=== PATIENT | male | born 1985 | race African-American/Black ===

== ENCOUNTER 2023-05-08 12:03 | Emergency (ER) | payer OTHER ==
[~2023-05-08] VITALS: Ht 165.1 cm; Wt 74.8 kg
[2023-05-08] MEDS ORDERED: BUSP15TA3 PO (12:13)
[2023-05-08] MEDS ORDERED: QUET100T32 PO (12:13)
[2023-05-08] MEDS ORDERED: ESCI20TA44 PO (12:13)
[2023-05-08] MEDS ORDERED: TRAZ-252 PO (12:21)
[2023-05-08 12:27] LABS: BASOPHILS % (AUTO) 0.7 % (0.0-2.0); EOSINOPHILS # (AUTO) 0.1 K/uL (0.0-0.7); EOSINOPHILS % (AUTO) 0.9 % (0.0-7.0); HEMATOCRIT 41.7 % (36.7-47.1); LYMPHOCYTES # (AUTO) 1.8 K/uL (0.8-4.8); MEAN CORPUSCULAR HEMOGLOBIN 31.4 uug (23.8-33.4); MEAN CORPUSCULAR HGB CONC 34 g/dL (32.5-36.3); MEAN CORPUSCULAR VOLUME 93.7 fL (73.0-96.2); MONOCYTES # (AUTO) 0.7 K/uL (0.1-1.30); MONOCYTES % (AUTO) 10.9 % (0.0-11.0); NEUTROPHILS # (AUTO) 3.6 K/uL (1.8-8.9); NEUTROPHILS % (AUTO) 58.5 % (38.5-71.5); PLATELET COUNT (AUTO) 290 K/uL (152-348); RED BLOOD CELL COUNT(AUTO) 4.46 MIL/uL (4.06-5.63); RED CELL DISTRIBUTION WIDTH 13.5 % (12.1-16.2); WHITE BLOOD COUNT (AUTO) 6.1 K/uL (3.6-10.2)
[2023-05-08 12:30] LABS: DIFFERENTIAL COMMENT 1
[2023-05-08 12:43] LABS: ALANINE AMINOTRANSFERASE 26 U/L (16-63); ALBUMIN 3.3 g/dL (3.4-5.0); ALKALINE PHOSPHATASE 84 U/L (50-136); ASPARTATE AMINOTRANSFERASE 19 U/L (15-37); BILIRUBIN,DIRECT 0.1 mg/dL (0.0-0.2); BILIRUBIN,TOTAL 0.3 mg/dL (0.2-1.0); CALCIUM 8.6 mg/dL (8.5-10.1); CARBON DIOXIDE 31 mmol/L (21-32); CHLORIDE 104 mmol/L (98-107); CREATININE 1.1 mg/dL (0.6-1.3); GLUCOSE 103 mg/dL (74-106); LIPASE 55 U/L (16-77); POTASSIUM 4.7 mmol/L (3.5-5.1); SODIUM SERUM 139 mmol/L (136-145); TOTAL PROTEIN, SERUM 6.2 g/dL (6.4-8.2); UREA NITROGEN, BLOOD 14 mg/dL (7-18)
[2023-05-08] MEDS ORDERED: IBUPROFEN 600 MG TABLET ONE (13:57)
[2023-05-08] MEDS: IBUPROFEN 600 MG TABLET PO ONE (13:58)
[2023-05-08] MEDS ORDERED: IBUP-1955 PO (15:22)
[2023-05-08 15:37] VITALS: BP 121/89; O2SAT 99
== END 2023-05-08 15:37 | disposition home or self-care (01) ==
LOC: ER 12:03
DX: R07.89 Other chest pain (principal); R94.31 Abnormal electrocardiogram [ECG] [EKG]; F32.A Depression, unspecified; Z79.899 Other long term (current) drug therapy
CPT/HCPCS: 36415; 71045; 83690; 84484; 85025; 93005; A4606; A4663

== ENCOUNTER 2024-02-20 13:42 | Emergency (ER) | payer OTHER ==
[~2024-02-20] VITALS: Ht 170.2 cm; Wt 65.8 kg
[~2024-02-20 13:42] MED LIST: BUSP15TA3 PO; ESCI20TA44 PO; IBUP-1955 PO; QUET100T32 PO; TRAZ-252 PO
[2024-02-20] MEDS ORDERED: CEFTRIAXONE 500 MG VIAL ONE (14:23)
[2024-02-20] MEDS ORDERED: LET TOPICAL SOLUTION 8 ML UDC ONE (14:24)
[2024-02-20] MEDS: CEFTRIAXONE 500 MG VIAL IM ONE (14:34)
[2024-02-20] MEDS: LET TOPICAL SOLUTION 8 ML UDC TP ONE (14:34)
[2024-02-20] MEDS ORDERED: DOXY100C5 PO (14:47)
[2024-02-20] MEDS ORDERED: MUPI1OIN5 TP (14:47)
[2024-02-20] MEDS ORDERED: ERYT3.5O24 RIGHTEYE (14:47)
[2024-02-20] MEDS ORDERED: MUPIROCIN 2% OINT 22 GM TUBE ONE (15:02)
[2024-02-20] MEDS: MUPIROCIN 2% OINT 22 GM TUBE TP ONE (15:19)
[2024-02-20 15:24] LABS: HIV-1 p24 ANTIGEN NON REACTIVE (NONREACTIVE); HIV-1/2 ANTIBODY NON REACTIVE (NONREACTIVE)
[2024-02-20 15:26] VITALS: BP 146/100; TEMP 98.8; O2SAT 98
[2024-02-21 13:09] LABS: *CHLAMYDIA NAA Negative (Negative); *GC NAA Negative (Negative); *TRIC.VAG. NAA Negative (Negative)
== END 2024-02-20 15:00 | disposition home or self-care (01) ==
LOC: ER 13:42
DX: Z11.3 Encounter for screening for infections with a predominantly sexual mode of transmission (principal); H00.012 Hordeolum externum right lower eyelid; L03.011 Cellulitis of right finger; L70.9 Acne, unspecified; L56.8 Other specified acute skin changes due to ultraviolet radiation; F32.A Depression, unspecified; F41.9 Anxiety disorder, unspecified; Z79.1 Long term (current) use of non-steroidal anti-inflammatories (NSAID); Z79.899 Other long term (current) drug therapy
CPT/HCPCS: 36415; 86592; 87491; 87806; A4606; A4663; J0696

== ENCOUNTER 2024-03-06 15:49 | Emergency (ER) | payer OTHER ==
[~2024-03-06] VITALS: Ht 167.6 cm; Wt 72.6 kg
[~2024-03-06 15:49] MED LIST changes: +DOXY100C5 PO; +ERYT3.5O24 RIGHTEYE; +MUPI1OIN5 TP
[2024-03-06 16:01] VITALS: O2SAT 100
== END 2024-03-06 18:14 | disposition left against medical advice (07) ==
LOC: ER 15:49
DX: R07.89 Other chest pain (principal); Z53.21 Procedure and treatment not carried out due to patient leaving prior to being seen by health care provider
CPT/HCPCS: A4606; A4663